=== PATIENT | female | born 1975 | race Caucasian/White ===

== ENCOUNTER 2016-08-22 11:11 | Emergency (ER) | payer MEDICAID ==
[~2016-08-22] VITALS: Ht 154.9 cm; Wt 56.1 kg
[~2016-08-22 11:11] MED LIST: CALC-516 PO; FERR240T9 PO; IBUP-1542 PO; PREN-39 PO
[2016-08-22 11:14] VITALS: Ht 154.9 cm; Wt 56.1 kg
[2016-08-22] MEDS ORDERED: ONDANSETRON (ODT) 4 MG TAB ODT STA (12:43)
[2016-08-22 12:55] LABS: URINE BLOOD (Dip) POC Trace-intact (NEGATIVE)
--- NOTE | 2016-08-22 12:56 | ERD ---
ER Documentation Chief Complaint Date/Time DATE: 08/22/16 TIME: 12:52 Chief Complaint diarrhea x 3 weeks, reported bloo in it HPI Pleasant Colombian-speaking 40-year-old female presents to emergency department today for complaints of 3 weeks of abdominal pain and bloating, bloody mucus in stool today. Patient reports there was blood on toilet paper with wiping., she denies any history of hemorrhoids or injury. Denies history of ulcer. Denies dysuria, constipation, abdominal pain is described as cramping, intermittent, pain 5-6 out of 10 on pain scale. Patient reports decreased appetite, decreased solid foods, reports he has pain with eating and drinking. Patient has tried no [id number] medication for symptomatic relief and has not been seen for this complaint in the past. History of gastritis on no medication Childbirth 4 months ago 39 week vaginal without complication., Breast- feeding Denies recent travel. ROS All systems reviewed and are negative except as per history of present illness. Medications Home Meds Active Scripts Pantoprazole* (Protonix*) 40 Mg Tablet.dr, 40 MG PO DAILY for 30 Days, #20 TAB Prov:DANII,MAIRA 08/22/16 Metronidazole* (Flagyl*) 500 Mg Tablet, 500 MG PO TID for 7 Days, TAB Prov:DANII,MAIRA 08/22/16 Azithromycin* (Zithromax*) 500 Mg Tablet, 500 MG PO DAILY for 3 Days, TAB Prov:DANII,MAIRA 08/22/16 Ibuprofen* (Ibuprofen*) 600 Mg Tablet, 600 MG PO Q6, #20 TAB 0 Refills Prov:FAN BENNETT MD 05/04/16 Reported Medications Calcium Carbonate/Vitamin D3 (OYSTER SHELL CALCIUM TABLET) 1 Each Tablet, 1 EACH PO DAILY, TAB 01/17/16 Ferrous Gluconate (Iron) 1 Tab Tablet, 1 TAB PO DAILY, TAB 01/17/16 Vits W-Ca,Fe,Fa(<1MG) ( Vitamins) 1 Tab Tablet, 1 TAB PO DAILY for 1 Day, 6 Refills 01/22/14 Allergies Allergies: Coded Allergies: No Known Allergy (Unverified , 04/24/16) Physical Exam Vitals Vital Signs Date Time Temp Pulse Resp B/P Pulse Ox O2 Delivery O2 Flow Rate FiO2 08/22/16 16:34 97.5 78 20 101/68 99 Room Air 08/22/16 11:14 98.1 87 18 108/52 99 Physical Exam Const: No acute distress Head: Atraumatic Eyes: Conjunctiva pink, PERRLA ENT: Oral mucosa moist, pink, tongue midline and moist. Neck: Resp: Clear to auscultation bilaterally Cardio: Regular rate and rhythm, no murmurs Abd: abdomen soft, nondistended, tender to palpation right upper quadrant, left upper quadrant, epigastric, and pelvic tenderness. Bowel sounds are active , positive Velasquez sign, negative CVA tenderness. Rectal: Normal tone, No mass, Positive control Stool: Red brown slimy stool, sphincter dilated, tone normal with reported tenderness on rectal exam. Guaiac: Negative Skin: Skin warm, no ecchymosis, no edema Back: No midline or flank tenderness, no CVA tenderness Ext: Neur: Awake and alert Psych: Normal Mood and Affect Result Diagram: 08/22/16 1300 08/22/16 1300 Results 24 hrs Laboratory Tests Test 08/22/16 12:57 08/22/16 13:00 Bedside Urine Blood Trace-intact Bedside Urine Glucose (UA) Negative Bedside Urine Ketones (LAB) Negative Bedside Urine Leukocyte Esterase (L Negative Bedside Urine Nitrite (LAB) Negative Bedside Urine Protein (LAB) Negative Bedside Urine pH (LAB) 5.5 Alanine Aminotransferase (ALT/SGPT) 35IU/L Albumin 3.4g/dl Albumin/Globulin Ratio 1.09 Alkaline Phosphatase 103IU/L Anion Gap 11 Aspartate Amino Transf (AST/SGOT) 19IU/L Basophils # 0.110^3/ul Basophils % 0.5% Blood Morphology Comment Blood Urea Nitrogen 9mg/dl Calcium Level 8.5mg/dl Carbon Dioxide Level 26mmol/L Chloride Level 108mmol/L Creatinine 0.68mg/dl Direct Bilirubin 0.00mg/dl Eosinophils # 0.710^3/ul Eosinophils % 6.4% Globulin 3.10g/dl Glucose Level 93mg/dl Hematocrit 33.1% Hemoglobin 11.0g/dl Indirect Bilirubin 0.0mg/dl Lymphocytes # 2.910^3/ul Lymphocytes % 27.6% Mean Corpuscular Hemoglobin 28.5pg Mean Corpuscular Hemoglobin Concent 33.2g/dl Mean Corpuscular Volume 86.0fl Mean Platelet Volume 7.6fl Monocytes # 1.010^3/ul Monocytes % 9.7% Neutrophils # 5.910^3/ul Neutrophils % 55.8% Nucleated Red Blood Cells # 0.010^3/ul Nucleated Red Blood Cells % 0.0/100WBC Platelet Count 68828^3/UL Potassium Level 3.3mmol/L Red Blood Count 3.8610^6/ul Red Cell Distribution Width 15.0% Sodium Level 142mmol/L Stool Occult Blood NEGATIVE Total Bilirubin 0.0mg/dl Total Protein 6.5g/dl White Blood Count 10.610^3/ul Current Medications Medications (Trade) Dose Ordered Sig/Brittany Route PRN Reason Start Time Stop Time Status Last Admin Dose Admin Ondansetron HCl (Zofran Odt) 4 mg ONCE STAT ODT 08/22/16 12:43 08/22/16 12:47 DC 08/22/16 12:52 Pantoprazole 40 mg 40 mg ONCE ONCE PO 08/22/16 13:00 08/22/16 13:01 DC 08/22/16 12:52 Sodium Chloride (NS) 1,000 ml @ 1,000 mls/hr Q1H ONCE IV 08/22/16 13:30 08/22/16 14:29 DC 08/22/16 13:53 Ketorolac Tromethamine (Toradol) 15 mg ONCE STAT IV 08/22/16 13:10 08/22/16 13:29 DC Acetaminophen (Tylenol Tab) 650 mg ONCE ONCE PO 08/22/16 15:30 08/22/16 15:31 DC 08/22/16 15:21 Interpretation Ariel CBC without evidence of acute anemia or hemorrhage CMP with low potassium at 3.3. No evidence of renal impairment or acute electrolyte imbalance Urinalysis essentially normal no leukocytosis or hematuria U hCG negative for evidence of Procedures/MDM Pleasant Colombian-speaking 40-year-old female presents to emergency room with abdominal pain,back pain and rectal bleeding, abdominal pain described as cramping, intermittent, with anorexia, nausea no vomiting. Patient reports rectal bleeding today with mucus seen on toilet paper. Patient gave 4 months ago with no reports of hemorrhoids, denies any dysuria, physical exam finding of her abdominal tenderness, positive Velasquez sign, negative psoas sign, rectal exam shows dilated sphincter with bloody gelatinous mucus. Serology normal, no evidence of anemia or hemorrhage. No evidence of bacterial infection , electrolytes mostly normal with potassium at 3.3. Case discussed with Dr. Kaplan, CT abdomen without IV contrast suggests suspected cholelithiasis, ultrasound limited for gallbladder, diagnosis cholelithiasis in gallbladder nonobstructive. I feel patient is stable for discharge and will be treated for a infective gastritis with azithromycin 500 mg 3 days, Flagyl 500 mg 3 times daily 7 days. Protonix 40 mg p.o. before meals a.m. daily. I have discussed the results, examination finding, disposition, and the treatment plan with patient and prior to discharge. Indications for emergent reevaluation side effects of medication as well as follow-up to outpatient clinics were all discussed. Comfort care discussed. Narcotic analgesic not given at this time, pain controlled with Tylenol, lifestyle modifications and diet discussed prior to discharge. Patient given list of community Resources for follow-up. Departure Condition: MAIRA Laguna Aug 22, 2016 12:56
[2016-08-22] MEDS ORDERED: PANTOPRAZOLE (EC) 40 MG TAB PO ONE (13:00)
[2016-08-22] MEDS ORDERED: KETOROLAC 15 MG INJ IV STA (13:10)
[2016-08-22 13:26] LABS: BASOPHIL # 0.1 10^3/ul (0.0-0.1); BASOPHILS % 0.5 % (0.0-2.0); EOSINOPHILS # 0.7 10^3/ul (0.0-0.5); EOSINOPHILS % 6.4 % (0.0-7.0); HEMATOCRIT 33.1 % (37.0-47.0); LYMPHOCYTES # 2.9 10^3/ul (0.8-2.9); LYMPHOCYTES % 27.6 % (15.0-51.0); MEAN CORPUSCULAR HEMOGLOBIN 28.5 pg (29.0-33.0); MEAN CORPUSCULAR HGB CONC 33.2 g/dl (32.0-37.0); MEAN PLATELET VOLUME 7.6 fl (7.4-10.4); MONOCYTES % 9.7 % (0.0-11.0); NEUTROPHIL # 5.9 10^3/ul (1.6-7.5); NEUTROPHILS % 55.8 % (39.0-77.0); PLATELET COUNT 474 10^3/UL (140-440); RED BLOOD COUNT 3.86 10^6/ul (4.20-5.40); UNCORRECTED WBC 10.6 10^3/ul (4.8-10.8); WHITE BLOOD COUNT 10.6 10^3/ul (4.8-10.8)
[2016-08-22 13:27] LABS: CONDITION 1; LH ANALYZER COMMENTS 1
[2016-08-22] MEDS ORDERED: SOD CHLORIDE 0.9% 1,000 ML IV ONE (13:30)
[2016-08-22 13:32] LABS: ALBUMIN 3.4 g/dl (3.3-4.9); POTASSIUM 3.3 mmol/L (3.5-5.1)
[2016-08-22 13:34] LABS: CREATININE 0.68 mg/dl (0.44-1.00)
[2016-08-22 13:35] LABS: ALBUMIN/GLOBULIN RATIO 1.09; CALCIUM 8.5 mg/dl (8.4-10.2); TOTAL PROTEIN 6.5 g/dl (6.1-8.1)
--- NOTE | 2016-08-22 15:06 | RADRPT ---
PROCEDURE: CT Abdomen and Pelvis without contrast. CLINICAL INDICATION: Abdominal and pelvic pain. Rectal bleeding. TECHNIQUE: CT scan of the abdomen and pelvis without contrast was performed. Coronal and sagittal reformatted images were obtained from the axial source images. Images were reviewed on a high-res[employer] PACS workstation. Total exam DLP is 462.18 mGy-cm. CTDIvol is 9.05 mGy. One or more of the fo [facility] dose reduction techniques were used: Automated exposure control, adjustment of the mA and/or kV according to patient size, use of iterative reconstruction technique. COMPARISON: None. FINDINGS: The images are suboptimal due to patient motion. The lung bases are normal. There is no pleural effusion. The liver is normal in size and attenuation. There is no gross focal hepatic lesion. Probable gallstones are present in the gallbladder. The spleen is grossly normal in size. There is no gross splenic mass. The adrenals are not seen due to patient motion. The pancreas is grossly unremarkable. There is no gross renal mass or hydronephrosis. There is no large renal calculus or ureteral calcul us. The abdominal aorta is not dilated. There is no retroperitoneal lymphadenopathy or mass. There is no pelvic lymphadenopathy or mass. The bladder and distal ureters are normal. The periappendiceal region is unremarkable with no evidence of appendicitis. There is no gross bowel obstruction. There is no free fluid. The osseous structures are unremarkable with no fracture or lytic lesion. IMPRESSION: 1. Suboptimal study due to patient motion. 2. Probable gallstones in the gallbladder. 3. No other gross abnormality. RPTAT: QQ .Murali Gupta MD, MD Date Time Electronically viewed and signed by .Murali Gupta MD, MD on 08/22/2016 15:06 .R/
[2016-08-22] MEDS ORDERED: ACETAMINOPHEN 325 MG TAB PO ONE (15:30)
--- NOTE | 2016-08-22 15:49 | RADRPT ---
PROCEDURE: US Abdomen (right upper quadrant). CLINICAL INDICATION: Right upper quadrant abdomen pain. TECHNIQUE: Multiple real-time longitudinal and transverse images of the right upper quadrant of th e abdomen were acquired utilizing a curved array transducer. Images were reviewed on a high-resoluti on PACS workstation. COMPARISON: CT scan of the abdomen and pelvis done earlier the same day. FINDINGS: The liver is normal in size and echogenicity. There is no focal hepatic lesion. Multiple gallstones are present in the gallbladder. There is no gallbladder wall thickening or flui d around the gallbladder. The bile ducts are normal with the common bile duct measuring 2.2 mm in diameter. The visualized portions of the pancreas are unremarkable with obscuration of the tail of the pancrea s. No free fluid is present. The right kidney measures 9.2 cm. There is normal echogenicity of the right kidney. There is no p erinephric fluid collection. No hydronephrosis, mass, or calculus is seen. IMPRESSION: 1. Gallstones in the gallbladder. No evidence of cholecystitis. 2. Otherwise normal right upper quadrant abdomen ultrasound. RPTAT: QQ .Murali Gupta MD, Date Time Electronically viewed and signed by .Murali Gupta MD, on 08/22/2016 15:49 .R/
[2016-08-22 16:34] VITALS: BP 101/68; PULSE 78; RESP 20; TEMP 97.5
[2016-08-22] MEDS ORDERED: PANT40TA3 PO (16:37)
[2016-08-22] MEDS ORDERED: AZIT500T3 PO (16:37)
[2016-08-22] MEDS ORDERED: METR500T PO (16:37)
== END 2016-08-22 17:00 | disposition home or self-care (01) ==
LOC: FTE 11:11
DX: K80.20 Calculus of gallbladder without cholecystitis without obstruction (principal); R10.2 Pelvic and perineal pain; K29.70 Gastritis, unspecified, without bleeding
CPT/HCPCS: 36415; 74176; 76705; 80053; 81003; 82270; 85025; J7030; Z7502; Z7610

== ENCOUNTER 2016-08-25 16:25 | Emergency (ER) | payer MEDICAID ==
[~2016-08-25] VITALS: Wt 55.5 kg
[~2016-08-25 16:25] MED LIST changes: +AZIT500T3 PO; +METR500T PO; +PANT40TA3 PO
--- NOTE | 2016-08-25 17:13 | ERD ---
ER Documentation Chief Complaint Date/Time DATE: 08/25/16 TIME: 17:00 Chief Complaint AP X 3 WEEKS WITH DIARRHEA HPI 40 y/o female presents to ED for diarrhea on and off for the past 3 weeks. Watery stools 5 times for the past 24 hours. Was here in the emergency room last 08/22/2016 for the same complaint and was discharged with final diagnosis of gastritis, cholelithiasis with a prescription of metronidazole and Protonix at home. Has mild lower abdominal pain described as achy nonradiating with a pain rate of 1/10. Denies headache, loss of consciousness, dizziness, blurry vision, changes in vision, photophobia, facial pain, ear pain, throat pain, difficulty swallowing, neck pain, shoulder pain, chest pain, cough, hemoptysis,back pain, loss of appetite, constipation, urinary symptoms, , the possibility of being , bladder and bowel incontinences, extremity weakness, extremity tenderness, numbness or tingling sensation, difficulty walking, recent travel, recent exposure to illness, fever, chills. Allergy: NKA PMH: Cholelithiasis Family medical history: Denies family history is of cancer, colon cancer AO LMP: 08/03/2016 Medications: Protonix. Metronidazole. Surgery: Denies. Social: Not working at this time. Denies smoking, use of alcohol, use of illegal drugs. ROS All systems reviewed and are negative except as per history of present illness. Medications Home Meds Active Scripts Pantoprazole* (Protonix*) 40 Mg Tablet.dr, 40 MG PO DAILY for 30 Days, #20 TAB Prov:DANII,MAIRA 08/22/16 Metronidazole* (Flagyl*) 500 Mg Tablet, 500 MG PO TID for 7 Days, TAB Prov:DANII,MAIRA 08/22/16 Azithromycin* (Zithromax*) 500 Mg Tablet, 500 MG PO DAILY for 3 Days, TAB Prov:DANII,MAIRA 08/22/16 Ibuprofen* (Ibuprofen*) 600 Mg Tablet, 600 MG PO Q6, #20 TAB 0 Refills Prov:FAN BENNETT MD 05/04/16 Reported Medications Calcium Carbonate/Vitamin D3 (OYSTER SHELL CALCIUM TABLET) 1 Each Tablet, 1 EACH PO DAILY, TAB 01/17/16 Ferrous Gluconate (Iron) 1 Tab Tablet, 1 TAB PO DAILY, TAB 01/17/16 Vits W-Ca,Fe,Fa(<1MG) ( Vitamins) 1 Tab Tablet, 1 TAB PO DAILY for 1 Day, 6 Refills 01/22/14 Allergies Allergies: Coded Allergies: No Known Allergy (Unverified , 04/24/16) PMhx/Soc Medical and Surgical Hx: pt denies Surgical Hx History of Surgery: No Anesthesia Reaction: No Hx Neurological Disorder: No Hx Respiratory Disorders: No Hx Cardiac Disorders: No Hx Psychiatric Problems: No Hx Miscellaneous Medical Probl: Yes (gallstones) Hx Alcohol Use: No Hx Substance Use: No Hx Tobacco Use: No Smoking Status: Never smoker Physical Exam Vitals Vital Signs Date Time Temp Pulse Resp B/P Pulse Ox O2 Delivery O2 Flow Rate FiO2 08/25/16 16:31 98.0 96 18 97/80 99 Physical Exam CONSTITUTIONAL: Well-appearing; well-nourished; in no apparent distress. HEAD: Normocephalic; atraumatic. EYES: Conjunctiva clear, sclera non-icteric, EOM intact. PERRL Ears: Hearing intact. EACs clear, TMs non-bulging, non-inflamed, translucent & mobile, ossicles normal appearance, No obstructions, no erythema, no discharges Nose: No obstructions. No polyps. No external lesions. Mucosa non-inflamed. No external lesions, septum and turbinates normal. No rhinorrhea. No discharges. Frontal sinus is non-tender to palpation. Maxillary sinus is non-tender to palpation. MOUTH: Moist mucous membranes, no lesion, no obstructions, no vesicles, no thrush, patent airway Throat: Uvula in midline. Right tonsil is +1 with no erythema, no exudate. Left tonsil is +1 with no erythema, no exudate. Tolerating secretions well. Good gag reflex. Patent airway. Neck: Supple, without lesions, bruits, or adenopathy. No mass. Thyroid non- enlarged and non-tender to palpation. CHEST: Symmetrical chest. Respirations even and not labored. No retractions noted. CARDIOVASCULAR: Normal S1, S2. RRR. No murmurs, gallops. RESPIRATORY: Normal chest excursion with respiration; breath sounds clear and equal bilaterally; no wheezes, rhonchi, or rales. Breathing even and unlabored. Speaking in clear, full, and complete sentences w/ ease. ABDOMEN: Normal bowel sounds normal. Soft, round, non-distended, no rebound, no organomegaly, no masses, no pulsating abdominal mass. No hernia. No peritoneal signs. : No CVA tenderness. BACK: Symmetrical shoulder. Spine is midline without deformity, tenderness. No evidence of trauma or deformity. PELVIS: Stable pelvis. No evidence of trauma or deformity. MUSCULOSKELETAL: Normal gait and station. No misalignment, asymmetry, crepitation, defects, tenderness, masses, effusions, decreased range of motion, instability, atrophy or abnormal strength or tone in the head, neck, spine, ribs , pelvis or extremities. No calf tenderness. NEUROVASCULAR: Distal pulses are present. Pedal pulse are present, equal, and normal. Capillary refills are < 2 seconds. NEUROLOGIC: Alert and oriented x4. Speaks full and clear sentences. Cranial Nerves II-XII normal. Sensation to pain, touch, and proprioception normal. Grossly unremarkable. No neurologic deficits. Romberg test is negative. PSYCHOLOGICAL: The patients mood and manner are appropriate. No hallucinations , delusions. Not SI. Not HI. Has the capacity to decide for self SKIN: Normal for age and ethnicity; warm; dry; good turgor; no apparent lesions or exudates. No rashes, hives, discoloration. Intact. Procedures/MDM Examination. Disease process, medical treatment was explained to the patient and family member. They verbalized understanding and agreed with the diagnostic tests, medical treatment, and follow-up care. Treatment: None. Re-evaluation: Denies pain. Unremarkable abdominal re-exam. Consultation: None. Differential diagnosis: Cholecystitis versus cholelithiasis versus biliary colic versus diarrhea Case and medical management was discussed with supervising emergency room physician, Dr. Ty Aguiar who agreed with my present plan and after care. Medical decision makin40 y/o female presents to ED for diarrhea on and off for the past 3 weeks. Watery stools 5 times for the past 24 hours. Was here in the emergency room last 08/22/2016 for the same complaint and was discharged with final diagnosis of gastritis, cholelithiasis with a prescription of metronidazole and Protonix at home. Has mild lower abdominal pain described as achy nonradiating with a pain rate of 1/10. Patient's complaint, patient's history about her complaint, my physical findings, diagnostic test results from previous visit here in the emergency room are consistent with my final diagnosis of biliary colic, diarrhea. Denies abdominal pain on reevaluation. No right upper abdominal tenderness/epigastric tenderness/left upper abdominal tenderness/right and left lower abdominal tenderness/pelvic tenderness on light and deep palpation. There is no peritoneal signs abdomen is non-guarding and there is no rebound tenderness. Ambulatory with steady gait. This process was discussed patient. She did verbalize understanding. Discharged and referred to a surgeon for an elective surgery. Medications prescribed are the following: Continue continue to prescribed medications previously. Tylenol as supportive treatment for pain and/or fever. Patient and family member are made aware of the side effects and adverse reactions of the medications prescribed. Instructed on when to seek emergent and medical attention in case allergic/anaphylactic reactions or severe side effects and or adverse reactions to medications. Patient and family member verbalized understanding. Patient instructed Instructed to follow-up with his PCP in 24-48 hours. Referred to a surgeon for an elective surgery. Instructed to Call 911 for chest pain, shortness of breath. Advised to come back here in ED as soon as possible for severity of symptoms which includes but not limited to: any new symptoms; shortness of breath/difficulty of breathing; cardiovascular changes; severe gastrointestinal symptoms; signs and symptoms of bleeding and or infection; signs of compartment syndrome/neurovascular changes; neurological changes/deficits. Patient and family member verbalized understanding. Upon discharge, patient is alert and oriented x 4, speaks full and clear sentences, denies pain, has no neurological deficits, has no neurovascular deficits, difficulty of breathing. Breathing even and unlabored. Lung sounds are clear to auscultation. Not in distress. Appears comfortable. There is no signs of dehydration. Afebrile. Ambulatory with steady gait. Appears satisfied with care provided here in ED. Departure Diagnosis: Primary Impression: Diarrhea Diarrhea type: unspecified type Qualified Code: R19.7 - Diarrhea, unspecified type Additional Impression: Biliary colic Condition: Good Additional Instructions: Follow-up with PCP in the next 24-48 hours. Referred to a surgeon for elective surgery. BROOKLYNN MENDEZ Aug 25, 2016 17:13
[2016-08-25 18:13] VITALS: BP 122/68; PULSE 79; RESP 19; TEMP 98.2
== END 2016-08-25 18:14 | disposition home or self-care (01) ==
LOC: FTE 16:25
DX: R19.7 Diarrhea, unspecified (principal); K80.50 Calculus of bile duct without cholangitis or cholecystitis without obstruction
CPT/HCPCS: 99282